=== PATIENT | male | born 1970 | race Caucasian/White ===

== ENCOUNTER 2018-09-10 15:56 | Emergency (ER) | payer SELFPAY ==
[~2018-09-10] VITALS: Wt 104.5 kg
--- NOTE | 2018-09-10 17:00 | ERD ---
ER Documentation Chief Complaint Chief Complaint BIB RA 81 CHEST PAIN PRESSURE ON/OFF X 3 DAYS HPI The patient is a 47-year-old male, presenting to the ER because of substernal chest tightness intermittently for the last 3 days, worse today around 2 PM. He is under a lot of stress, he denies similar symptoms previously, denies chest pain with vomiting/radiation/exertion/diaphoresis, dyspnea, abdominal pain, vomiting, dizzy, diarrhea. He does not smoke, drinks socially Past medical history: None past surgical history: Back ROS All systems reviewed and are negative except as per history of present illness. Allergies Allergies: Coded Allergies: No Known Allergy (Unverified , 09/10/18) PMhx/Soc Medical and Surgical Hx: pt denies Medical Hx, pt denies Surgical Hx Hx Alcohol Use: Yes Hx Substance Use: No Hx Tobacco Use: No Smoking Status: Never smoker Physical Exam Vitals Vital Signs Date Temp Pulse Resp B/P (MAP) Pulse Ox O2 O2 Flow FiO2 Time Delivery Rate 09/10/18 72 20 119/67 99 Room Air 20:30 (84) 09/10/18 68 20 124/80 99 Room Air 18:06 (95) 09/10/18 Nasal 2 17:45 Cannula 09/10/18 98.1 84 18 107/75 99 16:00 (86) Physical Exam Const: No acute distress. Head: Atraumatic. Eyes: Normal Conjunctiva. ENT: Normal External Ears, Nose and Mouth. Neck: Full range of motion. No meningismus. Resp: Clear to auscultation bilaterally. Cardio: Regular rate and rhythm. Abd: Soft, non distended, normal bowel sounds, non tender. Skin: No petechiae or rashes. Back: No midline or flank tenderness. Ext: No cyanosis, or edema. Neur: Awake and alert. No focal deficit Psych: Normal Mood and Affect. Result Diagram: 09/10/18 1645 09/10/18 1645 Results 24 hrs Laboratory Tests Test 09/10/18 16:45 09/10/18 19:41 White Blood Count 7.7 10^3/ul Red Blood Count 4.77 10^6/ul Hemoglobin 14.2 g/dl Hematocrit 41.6 % Mean Corpuscular Volume 87.2 fl Mean Corpuscular Hemoglobin 29.8 pg Mean Corpuscular Hemoglobin Concent 34.1 g/dl Red Cell Distribution Width 12.9 % Platelet Count 285 10^3/UL Mean Platelet Volume 9.0 fl Immature Granulocytes % 0.300 % Neutrophils % 64.9 % Lymphocytes % 26.8 % Monocytes % 5.6 % Eosinophils % 1.6 % Basophils % 0.8 % Nucleated Red Blood Cells % 0.0 /100WBC Immature Granulocytes # 0.020 10^3/ul Neutrophils # 5.0 10^3/ul Lymphocytes # 2.1 10^3/ul Monocytes # 0.4 10^3/ul Eosinophils # 0.1 10^3/ul Basophils # 0.1 10^3/ul Nucleated Red Blood Cells # 0.0 10^3/ul D-Dimer 306.73 ng/ml D-Dimer Comment Sodium Level 142 mmol/L Potassium Level 3.9 mmol/L Chloride Level 108 mmol/L Carbon Dioxide Level 26 mmol/L Anion Gap 8 Blood Urea Nitrogen 18 mg/dl Creatinine 0.91 mg/dl Est Glomerular Filtrat Rate mL/min > 60 mL/min Glucose Level 99 mg/dl Calcium Level 9.2 mg/dl Troponin I < 0.012 ng/ml < 0.012 ng/ml Current Medications Medications Dose Sig/So Start Time Status Last (Trade) Ordered Route PRN Stop Time Admin Dose Reason Admin Ketorolac 30 mg ONCE STAT 09/10/18 DC 09/10/18 Tromethamine IV 19:15 19:43 (Toradol) 09/10/18 19:17 Procedures/[place] [id number] Radiology Main Line: [phone] DIAGNOSTIC IMAGING REPORT Patient: DARIO CRAIG : 1970 Age: 47 Sex: M MR #: [id number] DOS: 09/10/18 1718 Ordering MD: EULALIO AVELAR MD Location: E/R Room/Bed: PROCEDURE: XR Chest. CLINICAL INDICATION: Chest pain TECHNIQUE: Single portable view of the chest was obtained. COMPARISON: None. FINDINGS: Cardiac/vascular structures: Normal cardiomediastinal silhouette. Pulmonary: Lungs are clear. No pleural effusion. No evidence of pneumothorax. Osseous structures: Normal Soft tissues: Normal IMPRESSION: No acute cardiopulmonary disease. RPTAT:AAJJ Physician [place] Date Time Electronically viewed and signed by Milind Pham Physician on 09/10/2018 18:13 MH/ CC: EULALIO AVELAR MD [id number] EK:01 PM read by emergency physician Rate/Rhythm: Normal Sinus Rhythm 70 beats/min QRS, ST, T-waves: No ST elevation, no T inversion Impression: Normal EKG EK:31 PM read by emergency physician Rate/Rhythm: Normal Sinus Rhythm 60 beats/min QRS, ST, T-waves: No ST elevation, no T inversion Impression: Normal EKG MEDICAL MAKING DECISION: The patient is a 47-year-old male, presenting with acute chest pain, stable for present follow-up. He was treated with Toradol 30mg IV for pain with good response The differential diagnoses considered include but are not limited to acute coronary syndrome, acute myocardial infarction, pericarditis, pulmonary embolism, aortic dissection, pneumonia, pleural effusion, pneumothorax, GERD, chest wall pain. The patient presents with chest pain and I considered pulmonary embolism, aortic dissection, pneumothorax among other diagnoses. Evaluation for acute coronary syndrome was performed. The HEART score (www.mdcalc.com) was utilized for risk stratification and found to be <= 3. Repeat EKG and troponin @ 3 hours were unchanged. Based on this evaluation the patients risk of major adverse cardiac events is <1%. Shared decision making occurred with patient and the decision has been made to discharge the patient for outpatient evaluation and functional study within 72 hours. Departure Diagnosis: Primary Impression: Chest pressure Condition: Good Comments I discussed the findings with the patient. I advised the patient to follow-up with the communication electronic technician Dr Pinto in about 1-2 days, sooner if needed and return if any concern. Disclaimer: Inadvertent spelling and grammatical errors are likely due to EHR/dictation software use and do not reflect on the overall quality of patient care. Also, please note that the electronic time recorded on this note does not necessarily reflect the actual time of the patient encounter. EULALIO AVELAR MD September 10, 2018 17:00
[2018-09-10] MEDS ORDERED: KETOROLAC 30 MG INJ IV STA (19:15)
[2018-09-10 20:30] VITALS: BP 119/67; PULSE 72; RESP 20
== END 2018-09-10 21:11 | disposition home or self-care (01) ==
LOC: E/R 15:56
DX: R07.89 Other chest pain (principal)
CPT/HCPCS: 36415; 71045; 80048; 84484; 85025; 85378; 93005; 96374; 99285; J1885